=== PATIENT | female | born 1945 | race Caucasian/White ===

== ENCOUNTER 2020-07-29 11:10 | Emergency (ER) | payer OTHER ==
[~2020-07-29] VITALS: Ht 165.1 cm; Wt 52.2 kg
[2020-07-29 13:03] VITALS: BP 146/76
== END 2020-07-29 13:03 | disposition home or self-care (01) ==
LOC: ER 11:10
DX: S01.21XA Laceration without foreign body of nose, initial encounter (principal); W19.XXXA Unspecified fall, initial encounter; Y93.89 Activity, other specified; Y92.89 Other specified places as the place of occurrence of the external cause; Y99.8 Other external cause status

== ENCOUNTER 2020-12-05 09:25 | Emergency (ER) | payer OTHER ==
[~2020-12-05] VITALS: Ht 170.2 cm; Wt 49.8 kg
--- NOTE | ~2020-12-05 | EMS ---
[address] [address] EMS Patient Care Report Name: ALEJANDRO HERNANDEZ Room #: DEP TERI Reddy#: [id number] Admission: 12/05/20 Attend Phys: Discharge: 12/05/20 Date of : 45 Report #: [id number] THIS REPORT FOR: //name// Report Transmitted: 12/06/2020 03:45 EMS Care Summary [facility] MED-[facility] Incident [id number] @ 12/05/2020 08:47 Incident Location [address] [place] [address] Patient ALEJANDRO HERNANDEZ Female, 75 Years 1945 Patient Address [address] [place] [address] Patient History Dementia,Alzheimer's, Patient Allergies No known allergies, Patient Medications Exelon, Namenda, Tylenol, Imodium, Zyrtec, Chief Complaint nose swelling Disposition Transported No Lights/[place] Dispatch Reason Falls Transported To [facility] Narrative Medic 1152 dispatched for a elderly female that fell. Upon rival patient is found in the care of nursing staff. Nurses report to EMS the patient fell [address] [address] EMS Patient Care Report Name: ALEJANDRO HERNANDEZ Room #: DEP LaxmiLiam#: [id number] Admission: 12/05/20 Attend Phys: Discharge: 12/05/20 Date of : 45 Report #: [id number] yesterday at 3 PM. Today 911 was called when they observe the patient have swelling to her nose. Her primary care physician was notified to advise should be sent to the emergency room. Patient has advanced dementia and Alzheimer's and is nonverbal secondary to that. Does have observed swelling to her nose and abrasions to her face. Patient has no other outward evidence of injury. Patient does not take blood thinners. Patient is able to ambulate to the stretcher with assistance. Patient rested comfortably during transport and arrived at hospital without incident, patient moved to hospital bed via sheet drag. Initial Vitals @09:04P: 65,BP: 123/75,SpO2: 68, @09:01P: 68,SpO2: 61, @09:01P: 66,R: 14,BP: 115/69,Pain: 0/10,GCS: 11,Temp: 98.4F,Glucose: 110,SpO2: 98,Revised Trauma: 11, Assessments @09:14MENTAL:Other,SKIN:No Abnormalities,HEENT:Head/Face: LAC,LUNG SOUNDS:General: No Abnormalities,Left Upper: No Abnormalities,Right Upper: No Abnormalities,Left Lower: No Abnormalities,Right Lower: No Abnormalities,ABDOMEN:General: No Abnormalities,Left Upper: No Abnormalities,Right Upper: No Abnormalities,Left Lower: No Abnormalities,Right Lower: No Abnormalities,PELVIS//GI:No Abnormalities,EXTREMITIES:Left Arm: No Abnormalities,Right Arm: No Abnormalities,Left Leg: No Abnormalities,Right Leg: No Abnormalities,PULSE:NEURO:No Abnormalities, Impression Injury of Head Timeline 08:46,Call Received 08:46,Psap Call 08:47,Dispatched 08:48,En Route 08:55,On Scene 08:58,At Patient 09:01,BP: 115/69 M,PULSE: 66,RR: 14 R,SPO2: 98 Ox,ETCO2: ,B,PAIN: 0,GCS: 11, 09:01,BP: / M,PULSE: 68,RR: R,SPO2: 61 Ox,ETCO2: ,BG: ,PAIN: ,GCS: , 09:03,Depart Scene 09:04,BP: 123/75 M,PULSE: 65,RR: R,SPO2: 68 Ox,ETCO2: ,BG: ,PAIN: ,GCS: , 09:19,At Destination 09:36,Call Closed [facility] [address] [place] [address] EMS Patient Care Report Name: ALEJANDRO HERNANDEZ Room #: DEP ER Fritz#: [id number] Admission: 12/05/20 Attend Phys: Discharge: 12/05/20 Date of : 45 Report #: [id number] Disclaimer v1.1 Copyright 2020 [employer] This EMS Care Summary contains data elements from the applicable legal record (which may be displayed differently). It is designed to provide pertinent information for the following purposes: continuity of care, clinical quality, and state data reporting. The complete legal record is available to ED staff and administrators of the receiving hospital in [facility]'s Patient Tracker. All data is provided "as is."
[2020-12-05 09:26] VITALS: BP 122/63
[2020-12-05] MEDS ORDERED: CHILDREN'S ZYRT10 M1 PO (09:31)
[2020-12-05] MEDS ORDERED: NAMENDA 10 MG T10 MG PO (09:31)
[2020-12-05] MEDS ORDERED: OLANZAPINE ODT5 MG PO (09:32)
[2020-12-05] MEDS ORDERED: RIVASTIGMINE4.5 MG PO (09:32)
[2020-12-05] MEDS ORDERED: LOPERAMIDE2 MG PO (09:33)
[2020-12-05] MEDS ORDERED: ZUPLENZ4 MG PO (09:33)
== END 2020-12-05 11:54 | disposition home or self-care (01) ==
LOC: ER 09:25
DX: S02.2XXA Fracture of nasal bones, initial encounter for closed fracture (principal); S00.81XA Abrasion of other part of head, initial encounter; Z79.899 Other long term (current) drug therapy; W19.XXXA Unspecified fall, initial encounter; Y93.89 Activity, other specified; Y92.89 Other specified places as the place of occurrence of the external cause; Y99.8 Other external cause status

== ENCOUNTER 2021-01-26 13:16 | Emergency (ER) | payer OTHER ==
[~2021-01-26] VITALS: Ht 165.1 cm; Wt 49.9 kg
[~2021-01-26 13:16] MED LIST: CHILDREN'S ZYRT10 M1 PO; LOPERAMIDE2 MG PO; NAMENDA 10 MG T10 MG PO; OLANZAPINE ODT5 MG PO; RIVASTIGMINE4.5 MG PO; ZUPLENZ4 MG PO
[2021-01-26 13:30] VITALS: BP 137/69
[2021-01-26 13:59] LABS: HEMATOCRIT 36.9 % (37.0-47.0); HEMOGLOBIN 12.6 gm/dL (12.0-15.0); MCH 31.8 pg (26.0-34.0); MCHC 34.2 g/dL (28.0-37.0); RBC 3.97 mil/uL (4.20-5.00); RDW 13.1 % (10.5-14.5); WBC 18.5 thou/uL (4.0-11.0)
[2021-01-26 14:07] LABS: CALCIUM 8.5 mg/dL (8.5-10.1); CREATININE 0.9 mg/dL (0.6-1.0); POTASSIUM 4.2 mmol/L (3.5-5.1)
[2021-01-26 14:13] LABS: ALBUMIN 2.8 g/dL (3.4-5.0); TOTAL BILIRUBIN 0.3 mg/dL (0.2-1.0)
[2021-01-26 15:20] LABS: URINE BILIRUBIN NEGATIVE (Negative); URINE BLOOD 2+ (Negative); URINE CLARITY SL HAZY; URINE COLOR YELLOW; URINE GLUCOSE-RANDOM* NEGATIVE (Negative); URINE KETONES TRACE (Negative); URINE LEUKOCYTES-REFLEX NEGATIVE (Negative); URINE NITRITE-REFLEX POSITIVE (Negative); URINE PROTEIN (DIPSTICK) NEGATIVE (Negative); URINE SPECIFIC GRAVITY 1.025 (1.005-1.035); URINE UROBILINOGEN 0.2 E.U./dl (0.2-1.0)
[2021-01-26 15:26] LABS: BACTERIA-REFLEX >30 Many /HPF (None Seen); SQUAMOUS 0-3 Few /LPF (0-3); URINE RBC 1-2 Rare /HPF (NONE SEEN); URINE WBC-REFLEX 0-5 Rare /HPF (0-5)
[2021-01-26 15:27] LABS: CASTS None Seen /LPF (None Seen); CRYSTALS None Seen /LPF (None Seen)
[2021-01-26] MEDS ORDERED: CEPHALEXIN500 MG PO ×2 (15:35→15:53)
[2021-01-29] MEDS ORDERED: AUGMENTIN 875-1 EACH PO (07:32)
== END 2021-01-26 15:45 | disposition home or self-care (01) ==
LOC: ER 13:16
PROVIDERS: Emergency Medicine; Student in an Organized Health Care Education/Training Program
DX: S60.221A Contusion of right hand, initial encounter (principal); F03.90 Unspecified dementia, unspecified severity, without behavioral disturbance, psychotic disturbance, mood disturbance, and anxiety; Z79.899 Other long term (current) drug therapy; X58.XXXA Exposure to other specified factors, initial encounter; Y93.89 Activity, other specified; Y92.89 Other specified places as the place of occurrence of the external cause; Y99.9 Unspecified external cause status